=== PATIENT | male | born 1955 | race African-American/Black ===

== ENCOUNTER 2022-02-19 11:44 | Emergency (ER) | payer OTHER ==
[2022-02-19] MEDS ORDERED: Morphine 4 MG/ML VIAL ONE (12:13)
== END 2022-02-19 13:00 | disposition home or self-care (01) ==
LOC: BURERS 11:44
DX: S82.61XA Displaced fracture of lateral malleolus of right fibula, initial encounter for closed fracture (principal); I10 Essential (primary) hypertension; E78.00 Pure hypercholesterolemia, unspecified; I25.2 Old myocardial infarction; F17.210 Nicotine dependence, cigarettes, uncomplicated; X50.1XXA Overexertion from prolonged static or awkward postures, initial encounter; Z95.5 Presence of coronary angioplasty implant and graft; Z79.82 Long term (current) use of aspirin
CPT/HCPCS: 27786; 96372; G0390; J2270